=== PATIENT | male | born 2000 | race Caucasian/White ===

== ENCOUNTER 2019-08-27 19:09 | Inpatient (IN) | payer OTHER ==
[~2019-08-27] VITALS: Ht 170.2 cm; Wt 60.7 kg
[2019-08-27 20:28] LABS: HEMATOCRIT 53.7 % (42.0-52.0); HEMOGLOBIN 17.8 g/dl (13.5-17.5); MEAN CORPUSCULAR HEMOGLOBIN 29.9 pg (27.0-33.0); MEAN CORPUSCULAR HGB CONC 33.1 g/dl (32.0-36.5); MEAN CORPUSCULAR VOLUME 90.1 fl (80.0-96.0); PLATELET COUNT, AUTOMATED 226 10^3/uL (150-450); RED BLOOD COUNT 5.96 10^6/uL (4.30-6.10); WHITE BLOOD COUNT 7.7 10^3/uL (4.0-10.0)
[2019-08-27 20:57] LABS: ACETAMINOPHEN LEVEL < 2.0 UG/ML (10.0-30.0); ALBUMIN 4.4 GM/DL (3.2-5.2); ALT/SGPT 23 U/L (12-78); BILIRUBIN,DIRECT 0.2 MG/DL (0.0-0.2); BILIRUBIN,TOTAL 0.7 MG/DL (0.2-1.0); BLOOD UREA NITROGEN 15 MG/DL (7-18); CALCIUM LEVEL 9.4 MG/DL (8.5-10.1); CARBON DIOXIDE LEVEL 30 MEQ/L (21-32); CHLORIDE LEVEL 105 MEQ/L (98-107); CREATININE FOR GFR 1.18 MG/DL (0.70-1.30); ETHYL ALCOHOL (ETHANOL) < 0.003 % (0.000-0.010); GLOMERULAR FILTRATION RATE > 60.0 (>60); GLUCOSE, FASTING 91 MG/DL (70-100); POTASSIUM SERUM 4.7 MEQ/L (3.5-5.1); SALICYLATE LEVEL < 1.7 MG/DL (5.0-30.0); SODIUM LEVEL 142 MEQ/L (136-145); TOTAL PROTEIN 8.1 GM/DL (6.4-8.2)
[2019-08-27 22:15] LABS: AMPHETAMINES LEVEL URINE NEGATIVE (NEGATIVE); BARBITURATES URINE NEGATIVE (NEGATIVE); BENZODIAZEPINES URINE NEGATIVE (NEGATIVE); CANNABINOIDS URINE NEGATIVE (NEGATIVE); COCAINE METABOLITE URINE NEGATIVE (NEGATIVE); METHADONE URINE NEGATIVE (NEGATIVE); OPIATES URINE NEGATIVE (NEGATIVE); PHENCYCLIDINE URINE NEGATIVE (NEGATIVE)
[2019-08-27] MEDS ORDERED: ACETAMINOPHEN TAB 650MG DOSE (2X325MG) PO PRN (22:45)
[2019-08-27] MEDS ORDERED: MOM 30ML SUSPENSION UDC PO PRN (22:45)
[2019-08-27] MEDS ORDERED: MAALOX 30 ML SUSP *UDC PO PRN (22:45)
[2019-08-28 03:00] VITALS: BP 127/75
[2019-08-28 06:19] VITALS: BP 127/68
--- NOTE | 2019-08-28 15:08 | HPE ---
DATE OF ADMISSION: 08/27/2019 PRIMARY CARE PROVIDER: Sheryl Santiago. HISTORY OF PRESENT ILLNESS: Please refer to psychiatric history and evaluation for further details on this admission. This examination and history is intended for medical issues, which may need treatment, followup or consultation on this 19-year-old male. ALLERGIES: PENICILLIN, AMOXICILLIN. 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 ETOH: He states that he used to drink quite heavily and now he drinks about once every 4 to 6 months, but he did state that this weekend he drank to intoxication. He does not smoke cigarettes. He does not use recreational drugs. PAST MEDICAL HISTORY: Depression. PAST SURGICAL HISTORY: [place] teeth extraction. HOME MEDICATIONS: None. FAMILY HISTORY: Mother alive and well with a history of drug abuse. Father from a fentanyl overdose. LABORATORY STUDIES: White count 7.7, hemoglobin 17.8, hematocrit 53.7. Platelets 226. Sodium 142, potassium 4.7, chloride 105, CO2 of 30, BUN 15, creatinine 1.18, TSH 1.39. Urine for toxicology negative. REVIEW OF SYSTEMS: 11 system review was done and is unremarkable. No complaints. PHYSICAL EXAMINATION: GENERAL: 19-year-old cooperative male in no acute distress. Height 67 inches, weight 60.7 kg, Body Mass Index (BMI) 21. VITAL SIGNS: Blood pressure 128/58, pulse 76, respirations 16, temperature 99, oxygen saturation 97% on room air. The patient is alert and oriented times three. HEENT: Pupils are equal and reactive to light. Extraocular muscles intact. Sclerae clear. Conjunctivae normal. No facial asymmetry. Pharynx, gums and tongue pink and moist. Tongue is midline. NECK: Supple without lymphadenopathy, thyromegaly or goiter. Carotids are 2+ without bruit. CHEST: Clear to auscultation without wheeze or retraction. HEART: Regular. ABDOMEN: Benign. Bowel sounds positive. GENITOURINARY/RECTAL: Not done. EXTREMITIES: Equal strength, full range of motion. No clubbing, cyanosis, and edema. Peripheral pulses equal and palpable bilaterally. SKIN: Warm and dry. IMPRESSION/PLAN: 1. Psychiatric plan per psychiatry. 2. Deep vein thrombosis (DVT) prophylaxis. Early ambulation. No acute medical issues.
[2019-08-28 15:34] VITALS: BP 114/66
--- NOTE | 2019-08-28 16:50 | MHHPE ---
DATE OF ADMISSION: 08/27/2019 CURRENT MEDICATIONS: None. CHIEF COMPLAINT: Suicidal threats. HISTORY OF PRESENT ILLNESS: This is a 19-year-old white male who has been in the [employer] for 3 years. 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 He texted his mother that he was going to commit suicide. She called the police. He also made a video saying goodbye to family and friends. He planned to borrow a pull up bar from a friend with plans to hang himself. He has had multiple stressors, the main one is that his girlfriend of 4 years broke up with him back in July. There are also family issues back home in [place]. His mother is a drug user but is currently clean. His brother is in foster care. His grandfather recently. The patient's appetite has been poor. He has lost 20 pounds over the past month or two. His concentration is poor. Level of energy is low. Motivation is poor. Self esteem is poor. The patient complains of insomnia. Attention to activities of daily living is poor. The patient was hospitalized at a psychiatric facility in [place] called [facility] and he was discharged from there recently. His unit was down in [place] for [facility] and recently returned to [place]. The patient plans to be released from the [employer] in about 2 to 3 months. He has no future plans and he is worried about this. He thinks constantly about his ex girlfriend, contacting her frequently and contacting her friends and family, which she does not appreciate apparently. The patient did not want psychotropic medications while at [facility], but states that he is willing to give them a try now at this point in time. The patient does have a history of alcohol abuse in the past. The patient has drank to intoxication this past weekend. PAST PSYCHIATRIC HISTORY: The patient was hospitalized recently in [place] at [facility]. Those records are not currently available. MEDICAL HISTORY: The patient is healthy. ALLERGIES: AMOXICILLIN, PENICILLIN. LEGAL HISTORY: The patient denies. CHEMICAL DEPENDENCY: History of abusing alcohol in the past and most recently this weekend. SOCIAL HISTORY: The patient was born and raised in the [place], [place] area. The patient's parents were involved with drugs. He was in the foster care system for many years. He graduated from [place] school [place], [place]. The patient was never abused in the foster care system. The patient's father did of a fentanyl overdose when the patient was age 16. His mother has a history of drug addiction but is currently clean. The patient has four half siblings. Relationship with them is minimal. FAMILY PSYCHIATRIC HISTORY: The patient's father had a history of depression. Both of his parents have a history of addiction. MSE: alert and oriented. moderately depressed. Passive suicidal ideation. Moderate anxiety. Nonpsychotic. No cognitive deficits. Poor insight and judgement. Length of stay is 7 to 10 days. ASSESSMENT: The patient has a history of chronic depression dating back for many years since he was adopted. He has had multiple losses over the years, losing his girlfriend appears to be the most recent precipitating stressor. DIAGNOSES: 1. Major depressive disorder, moderate severity. 2. Alcohol use disorder. PLAN: Confirm 9.39. Start on a trial of Effexor XR. Involve in hospital milieu. Staff to start working on discharge planning [facility]. [facility]
[2019-08-28] MEDS: traZODone 50 MG TAB PO PRN (20:51)
[2019-08-29 07:00] VITALS: BP 137/64
[2019-08-29] MEDS: VENLAFAXINE **XR** 37.5 MG CAPSULE PO SCH (09:30)
--- NOTE | 2019-08-29 15:41 | MHIPN ---
DATE: 08/29/2019 VITAL SIGNS: Temperature 98.6, pulse 82, respirations 14, blood pressure 137/64. CURRENT MEDICATIONS: - Effexor XR 37.5 mg in the morning - trazodone 50 mg at night as needed HISTORY OF PRESENT ILLNESS: Patient tolerated his first dose of Effexor XR this morning quite well. He noticed some benefit from it almost immediately. He typically gets stomach "butterflies" when anxious, this is improved since being on the Effexor. Subsequently, his appetite is improved and he ate more robustly at lunch. The patient has lost quite a bit of weight over the past month or so. He is more optimistic about his appetite returning. He slept somewhat improved last night on the trazodone. The patient had been tormenting himself and his ex girlfriend with frequent phone calls. He has decided to take a break from this, showing improved insight. He plans not to have any further contact with her for the foreseeable future. He still worries about the future when he returns to [place] after discharge from the [employer]. Motivation and energy level are still low. His concentration was somewhat improved today, for example he won two games of chess, which he is proud of. The patient has never been on psychotropic medications before but is agreeable to maintaining it. MENTAL STATUS EXAMINATION: The patient is alert, oriented and cooperative. Affect is somewhat brighter today. He is more hopeful about the future. No suicidal ideation in the past 24 hours. Anxiety persists but is not as prominent. Depressive symptoms are improved. No signs of psychosis. Eye contact is good. No signs of cognitive deficits. DIAGNOSES: 1. Major depressive disorder, moderate severity. 2. Alcohol use disorder. PLAN: Continue current dose of Effexor XR. Encourage involvement in hospital milieu.
[2019-08-29 16:20] VITALS: BP 129/76
[2019-08-29] MEDS: traZODone 50 MG TAB PO PRN (20:56)
[2019-08-30 06:02] VITALS: BP 118/59
[2019-08-30] MEDS: VENLAFAXINE **XR** 37.5 MG CAPSULE PO SCH (08:46)
[2019-08-30 16:23] VITALS: BP 126/75
--- NOTE | 2019-08-30 21:49 | MHIPN ---
DATE: 08/30/2019 VITAL SIGNS: Temperature 98.6, pulse 72, respirations 16, blood pressure 118/59. CURRENT MEDICATIONS: - Effexor XR 37.5 mg in the morning - trazodone 50 mg at night HISTORY OF PRESENT ILLNESS: Patient states that his appetite is a bit improved. He is still not sleeping well at night. He had a sleep latency of 2 hours last night for example. He still reports moderate symptoms of anxiety and depression. He is willing to increase the dose of the Effexor. His concentration is fair. Patient has been active in the hospital milieu. He speaks with his family back in [place] daily on the telephone. His family is quite supportive. He still worries about his future once he returns to the [place] area. He does not feel that college is right for him. MENTAL STATUS EXAMINATION: The patient is alert, oriented and cooperative. Affect appears less anxious and a bit brighter. He is somewhat hopeful about the future. He has had no further suicidal thoughts. Depression mild. Anxiety symptoms are mild to moderate. The patient is not psychotic. Eye contact remains good. No signs of impulsivity or dangerousness. No signs of cognitive deficits. DIAGNOSES: 1. Major depression,mild severity. 2. Alcohol use disorder. PLAN: Increase Effexor XR to 75 mg in the morning. Increase trazodone to 100 mg at night. MTDD
[2019-08-30] MEDS: traZODone 100 MG TAB PO PRN (22:17)
[2019-08-31 05:58] VITALS: BP 109/55
[2019-08-31] MEDS: VENLAFAXINE **XR** 75MG CAPSULE PO SCH (08:42)
[2019-08-31 16:12] VITALS: BP 130/85
[2019-08-31] MEDS: traZODone 100 MG TAB PO PRN (22:56)
--- NOTE | 2019-09-01 06:38 | MHIPN ---
DATE OF VISIT: 08/31/2019 VITAL SIGNS: Temperature 99.2, pulse 65, respirations 14, blood pressure 109/55. CURRENT MEDICATIONS: - Effexor XR 75 mg every morning - trazodone 100 mg nightly as needed HISTORY OF PRESENT ILLNESS: The patient did report some morning sedation upon awakening. He blames this on the trazodone. This was tolerable. His anxiety symptoms are better however. His appetite is improving. His stomach feels calmer. He calls friends and family frequently in [place]. He is no longer calling the ex-girlfriend but he is calling her mother which is not advised. He does feel more positive about the future. No other complaints. MENTAL STATUS EXAM: The patient is alert, oriented and cooperative. Anxiety is less prominent. Affect is brighter. The patient appears hopeful about the future. He states depressive symptoms are mild. Anxiety symptoms are mild. No signs of psychosis. Memory functions appear intact. DIAGNOSES: 1. Major depression recurrent. 2. Alcohol use disorder. PLAN: Continue present management. Involvement in hospital milieu.
[2019-09-01 06:44] VITALS: BP 105/53
[2019-09-01] MEDS: VENLAFAXINE **XR** 75MG CAPSULE PO SCH (08:37)
--- NOTE | 2019-09-01 14:43 | MHIPN ---
DATE: 09/01/2019 VITAL SIGNS: Temperature 99.3, pulse 105, respirations 52, blood pressure 105/53. CURRENT MEDICATIONS:: - Effexor XR 75 mg every morning - trazodone 100 mg at bedtime as needed HISTORY OF PRESENT ILLNESS: Patient states his mood is improved. He feels the medication has been helpful. Effexor helps with his anxiety symptoms, settles his nervous stomach down. He is able to eat better, which he is happy with. The patient feels more optimistic about the future. He does have some goals. He does have a lot of family support back in [place] where he will be returning to after he leaves the [employer]. The patient just has another month or two in the [facility] and feels that he can cope well with this. He feels that his thinking is more rational and not as emotional. He is agreeable to staying on the Effexor and staying on it through discharge when he returns to [place]. He has no other complaints. MENTAL STATUS EXAMINATION: The patient is alert, oriented and cooperative. Anxiety is minimal. Affect definitely brighter. He is calmer, more positive about the future. Depression is minimal. No signs of dangerousness. No signs of impulsivity. The patient is not psychotic. Memory functions within normal limits. DIAGNOSES: Major depression, recurrent. Alcohol use disorder. PLAN: Staff to contact [facility] [employer] for possible discharge. Staff to work with [facility] and to coordinate care.
[2019-09-01 15:30] VITALS: BP 132/61
[2019-09-01] MEDS: traZODone 100 MG TAB PO PRN (22:47)
[2019-09-02 06:54] VITALS: BP 127/60
[2019-09-02] MEDS: VENLAFAXINE **XR** 75MG CAPSULE PO SCH (08:15)
[2019-09-02] MEDS ORDERED: VENL75CA47 PO (08:52)
[2019-09-02] MEDS ORDERED: TRAZ10TA PO (08:52)
--- NOTE | 2019-09-03 08:58 | MHDS ---
DATE OF ADMISSION: 08/27/2019 DATE OF DISCHARGE: 09/02/2019 Vital signs: Temperature 98.0, pulse 71, respiration 12, blood pressure 127/60. LABS: CBC and differential normal except for increased hemoglobin 17.8 and increased hematocrit at 53.7. Serum chemistry within normal limits. Urine toxicology screen negative for alcohol. Drug screen negative for substances. DISCHARGE DIAGNOSIS: Major depression, recurrent. Alcohol use disorder. DISCHARGE MEDICATION: - Effexor XR 75 mg every morning - trazodone 100 mg at bedtime CHIEF COMPLAINT: Suicidal threats. HISTORY OF PRESENT ILLNESS: This is a 19-year-old white male who has been in the [employer] for 3 years. He texted his mother that he was going to commit suicide. She noticed the police. He also made a suicide video. He had a suicidal plan to hang himself. Patient has multiple stressors. The major one is that his girlfriend of 4 years broke up with him in July. Patient's appetite has been poor. He has lost 20 pounds over the past month or two. Patient had been hospitalized recently at [facility] in [place]. Records from that facility were not available. Patient is planning on being released from the [employer] in about 2-3 months. Patient is worried about his future. Patient did not want psychotropic medications while at [facility], but not is willing to give them a try. Patient has history of abusing alcohol periodically. PROGRESS ON THE UNIT: The patient isolated a lot on the unit. He states he prefers one-on-one therapy and refused to go to the various group therapies. Patient was placed on Effexor XR which was well tolerated. The dose was increased to 75 mg every morning without side effects. Patient's mood did improve. His anxiety improved as well. His appetite improved markedly. He felt more hopeful about the future. He decided not to have any further contact with his ex-girlfriend. He states that his thinking is more "rational" and not emotional as it was before. Sleep pattern has improved with the trazodone. Level of energy was improved. He has goals for the future. He appeared future oriented. He is willing to work with outpatient provider at [facility] especially on a one-to-one basis. MENTAL STATUS EXAMINATION AT TIME OF DISCHARGE: Mood and affect was much improved. Affect was brighter. He had good eye contact. Grooming and hygiene was quite good. Depression was minimal. He had no further suicidal thoughts or impulses. Insight and judgment appeared reasonably good. No signs of impulsivity. No signs of psychosis. No signs of cognitive deficits. ASSESSMENT: The patient appears to have reached maximal hospital benefit. PLAN: [facility]. Patient will need VA services upon discharge in the [place], [place] area.
== END 2019-09-02 09:45 | disposition home or self-care (01) | DRG 885 ==
LOC: M ED 19:09 → M ED INP 22:39 → M PSY 08-28 01:35
PROVIDERS: ADMIT Psychiatry & Neurology Addiction Medicine; ATTEND Psychiatry & Neurology Addiction Medicine
DX: F33.1 Major depressive disorder, recurrent, moderate (principal); F10.20 Alcohol dependence, uncomplicated; Z63.0 Problems in relationship with spouse or partner; F43.21 Adjustment disorder with depressed mood; Z88.0 Allergy status to penicillin; Z88.1 Allergy status to other antibiotic agents; Z81.8 Family history of other mental and behavioral disorders